=== PATIENT | male | born 1955 | race Caucasian/White ===

== ENCOUNTER 2018-09-21 06:54 | Outpatient (CLI) | payer BC | END 2018-09-21 23:59 | disposition home or self-care (01) | LOC: CVU 06:54 | PROVIDERS: ATTEND Internal Medicine Cardiovascular Disease | DX: I08.8 Other rheumatic multiple valve diseases (principal); I10 Essential (primary) hypertension; E78.5 Hyperlipidemia, unspecified; R73.09 Other abnormal glucose | CPT/HCPCS: 0399T; 78452; 93017; 93306; A9502 ==